=== PATIENT | female | born 1950 | race Caucasian/White ===

== ENCOUNTER → 2022-12-31 10:48 | Outpatient (BNVA) | payer MEDICARE, SELFPAY | PROVIDERS: Visit Provider Nurse Practitioner Family | DX: E55.9 Vitamin D deficiency, unspecified (principal); E78.2 Mixed hyperlipidemia; I10 Essential (primary) hypertension; K21.9 Gastro-esophageal reflux disease without esophagitis; R73.09 Other abnormal glucose; M25.562 Pain in left knee; M25.462 Effusion, left knee | CPT/HCPCS: 73562; 80053; 80061; 82306; 83036; 84443; 85025 ==

== ENCOUNTER → 2023-01-23 11:04 | Outpatient (BNVA) | payer MEDICARE, SELFPAY | PROVIDERS: Visit Provider Nurse Practitioner Family | DX: R71.8 Other abnormality of red blood cells (principal) | CPT/HCPCS: 82607; 82746 ==

== ENCOUNTER → 2023-04-17 11:59 | Outpatient (BNVA) | payer MEDICARE, SELFPAY | PROVIDERS: PCP Nurse Practitioner Family; Visit Provider Nurse Practitioner Family | DX: E78.2 Mixed hyperlipidemia (principal); E55.9 Vitamin D deficiency, unspecified; F41.9 Anxiety disorder, unspecified; F32.9 Major depressive disorder, single episode, unspecified; I10 Essential (primary) hypertension; R71.8 Other abnormality of red blood cells; L98.9 Disorder of the skin and subcutaneous tissue, unspecified | CPT/HCPCS: 80053; 82306; 82607; 84443; 85025 ==

== ENCOUNTER → 2023-07-03 11:25 | Outpatient (BNVA) | payer MEDICARE, MEDICAID, SELFPAY | PROVIDERS: PCP Nurse Practitioner Family; Visit Provider Nurse Practitioner Family | DX: E78.2 Mixed hyperlipidemia (principal); E55.9 Vitamin D deficiency, unspecified; I10 Essential (primary) hypertension | CPT/HCPCS: 80053; 80061; 82306; 84443; 85025 ==

== ENCOUNTER → 2023-09-10 09:24 | Outpatient (BNVA) | payer MEDICARE, MEDICAID, SELFPAY | PROVIDERS: PCP Nurse Practitioner Family; Visit Provider Nurse Practitioner Family | DX: K59.00 Constipation, unspecified (principal) | CPT/HCPCS: 74018 ==

== ENCOUNTER → 2023-10-28 14:05 | Outpatient (BNVA) | payer MEDICARE, MEDICAID, SELFPAY | PROVIDERS: PCP Nurse Practitioner Family; Visit Provider Nurse Practitioner Family | DX: E55.9 Vitamin D deficiency, unspecified (principal); E78.2 Mixed hyperlipidemia; I10 Essential (primary) hypertension; K21.9 Gastro-esophageal reflux disease without esophagitis | CPT/HCPCS: 80053; 80061; 84443; 85025 ==

== ENCOUNTER 2024-01-13 06:00 | Outpatient (CLI) | payer MEDICARE, MEDICAID, SELFPAY | END 2024-01-13 06:01 | disposition home or self-care (01) | LOC: RAD 01-14 06:09 | PROVIDERS: PCP Nurse Practitioner Family; Visit Provider Nurse Practitioner Family | DX: E55.9 Vitamin D deficiency, unspecified (principal); I10 Essential (primary) hypertension | CPT/HCPCS: 80053; 80061; 82306; 84443; 85025 ==

== ENCOUNTER 2024-01-19 15:17 | Outpatient (CLI) | payer MEDICARE, MEDICAID, SELFPAY ==
--- NOTE | 2024-01-19 15:00 | MM_ITS ---
WS: [id number] BILATERAL 3D TOMOSYNTHESIS DIGITAL SCREENING MAMMOGRAPHY WITH CAD CLINICAL INFORMATION: SCREENING HISTORY: Screening mammogram. No current complaints. COMPARISON: 2010 TECHNIQUE: Bilateral CC and MLO views. FINDINGS: Scattered fibroglandular densities bilaterally. No suspicious focal mass, asymmetry, calcifications, or architectural distortion. No evidence of malignancy. Vascular calcifications. MM/[place] [id number] IMPRESSION: DENSITY: There are scattered areas of fibroglandular density. BI-RADS: 2 - Benign. FOLLOW UP: 1 Year Follow-up Recommend return to annual screening mammography.
== END 2024-01-19 15:18 | disposition home or self-care (01) ==
LOC: MOBLMAM 15:18
PROVIDERS: PCP Nurse Practitioner Family; Visit Provider Nurse Practitioner Family
DX: Z12.31 Encounter for screening mammogram for malignant neoplasm of breast (principal); R92.323 Mammographic fibroglandular density, bilateral breasts; R92.1 Mammographic calcification found on diagnostic imaging of breast
CPT/HCPCS: 77063; 77067

== ENCOUNTER → 2024-04-27 09:23 | Outpatient (BNVA) | payer MEDICARE, MEDICAID, SELFPAY | PROVIDERS: PCP Clinical Nurse Specialist Adult Health; Visit Provider Clinical Nurse Specialist Adult Health | DX: E78.2 Mixed hyperlipidemia (principal); E55.9 Vitamin D deficiency, unspecified; I10 Essential (primary) hypertension; R10.12 Left upper quadrant pain | CPT/HCPCS: 80053; 80061; 82306; 85025 ==

== ENCOUNTER → 2024-12-12 14:35 | Outpatient (BNVA) | payer MEDICARE, MEDICAID, SELFPAY | PROVIDERS: PCP Clinical Nurse Specialist Adult Health; Visit Provider Clinical Nurse Specialist Adult Health | DX: K59.00 Constipation, unspecified (principal); I10 Essential (primary) hypertension; E55.9 Vitamin D deficiency, unspecified; E78.2 Mixed hyperlipidemia; F41.9 Anxiety disorder, unspecified; F32.9 Major depressive disorder, single episode, unspecified; K21.9 Gastro-esophageal reflux disease without esophagitis; M81.0 Age-related osteoporosis without current pathological fracture | CPT/HCPCS: 74018; 80053; 82306; 85025 ==

== ENCOUNTER 2025-01-16 16:29 | Emergency (ER) | payer MEDICARE, MEDICAID, SELFPAY ==
--- OUTSIDE RECORDS SUMMARY | 2025-01-16 16:35 | XMS_ITS | Clinical Summary ---
Author Organization [facility] [place] Address [address] [place] [address] Care Team Providers Care Signals Intelligence Superintendent Name Role Phone Lincoln Vargas Primary Care Provider [phone] Allergies No known active allergies Medications NORVASC PO Take by mouth. Active ACTONEL PO Take by mouth. Active BUSPAR PO Take by mouth. Active CALCIUM + D PO Take by mouth. Active ASPIRIN 81 mg Oral Tab Take 81 mg by mouth daily. Active triamcinolone acetonide (KENALOG) 0.1 % Topical Oint Apply to affected area 2 times daily. 80 Gram 2 9 Active METOPROLOL TARTRATE ORAL Take by mouth. Active LISINOPRIL ORAL Take by mouth. Active FENOFIBRATE NANOCRYSTALLIZED (TRICOR ORAL) Take by mouth. Active CITALOPRAM HYDROBROMIDE (CELEXA ORAL) Take by mouth. Active TOPIRAMATE (TOPAMAX ORAL) Take by mouth. Active RANITIDINE HCL ORAL Take by mouth. 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 Gender Identity Not on file Sexual Orientation Not on file Occupation Industry Job Start Date Job End Date Not on file Not on file Not on file Not on file Not on file Not on file Not on file Not on file Last Filed Vital Signs Vital Sign Reading Time Taken Comments Blood Pressure 120/65 02/14/2014 2:00 AM CDT Pulse 76 02/14/2014 2:00 AM CDT Temperature 36.9 C (98.4 F) 02/14/2014 2:00 AM CDT Respiratory Rate 19 02/14/2014 2:00 AM CDT Oxygen Saturation 96% 02/14/2014 2:00 AM CDT Inhaled Oxygen Concentration - - Weight 84.9 kg (187 lb 1 oz) 02/14/2014 12:18 AM CDT Height 162.6 cm (5' 4 ) 02/14/2014 12:18 AM CDT Body Mass Index 32.11 02/14/2014 12:18 AM CDT Plan of Treatment Health Maintenance Due Date Last Done Comments DTAP/TDAP/TD VACCINES (1 - Tdap) 07/31/1970 BREAST CANCER SCREENING 1991 COLORECTAL SCREENING 07/31/1996 Colorectal Cancer Screening 07/31/1996 FIT-DNA Q 3 years 07/31/1996 FIT/FOBT Q 1 year 07/31/1996 Flex Sig/CT Colonography Q 5 years 07/31/1996 PNEUMOCOCCAL VACCINE 50+ YEARS (1 of 1 - PCV) 08/01/19 02 ZOSTER VACCINE (1 of 2) 07/31/2001 OSTEOPOROSIS SCREENING 07/31/2016 INFLUENZA VACCINE (#1) 2024 RSV VACCINE (60+ or ) (1 - 1-dose 75+ series) 07/31/2026 Insurance MEDICAID [place] Care Teams Signals Intelligence Superintendent Relationship Specialty Start Date End Date Lincoln Vargas DO [address] [place] [address] PCP - General Family Practice 01/19/13
[2025-01-16 17:01] VITALS: BP 164/100; PULSE 102; TEMP 36.7; O2SAT 98
--- NOTE | 2025-01-16 17:13 | XRR_ITS ---
PROCEDURE INFORMATION: Exam: XR Chest Exam date and time: 01/16/2025 5:16 PM Age: 74 years old Clinical indication: Shortness of breath; Additional info: Short of breath, abnormal breath sounds TECHNIQUE: Imaging protocol: Radiologic exam of the chest. Views: 1 view. Total images: 421 COMPARISON: 1. CR XR abdomen 1V* [id number] 12/12/2024 2:34 PM 2. CR XR abdomen 1V* [id number] 09/10/2023 9:23 AM FINDINGS: Lungs: Unremarkable. No consolidation. Lungs are well-aerated without focal pathologic pulmonary parenchymal process. Pleural spaces: No significant pleural effusion. No pneumothorax. Heart/Mediastinum: The heart is not enlarged. Vasculature: Aortic wall demonstrates moderate atherosclerotic calcification. Bones/joints: Severe chronic generalized degenerative changes of the vertebral column characterized by multilevel osteophyte formation, degenerative disc height loss, vacuum disc phenomenon, and degenerative facet arthrosis commensurate with patient's age. S shaped scoliosis of the thoracolumbar vertebral column. Shoulder glenohumeral osteoarthritis. Acromioclavicular joint mild chronic degenerative arthrosis. No acute osseous abnormality. Bones are qualitatively demineralized (osteopenic) limiting evaluation for nondisplaced fractures. XR/XR chest 1V portable [id number] IMPRESSION: Generalized advanced skeletal chronic degenerative and other nonacute findings as described above.
--- NOTE | 2025-01-16 17:14 | W.ED.URI ---
HPI - URI/Sore Throat General: Chief Complaint: Upper Respiratory Infection Stated Complaint: throat conjestion Time Seen by Provider: 01/16/25 16:43 History of Present Illness: Patient is a 74-year-old female with history of HLD, HTN, presents to the emergency room with hoarseness, sore throat, shortness of breath x 3 days. Roommate exposure: COVID. Shortness of breath is worse with exertion. Nonproductive cough. No fevers. No dysphagia. Endorses weakness. Oxygen saturation is 98% on room air in triage. No chest pain. Associated symptoms: Reports chills and nasal congestion; Deny abdominal pain, chest pain, fever(s), headache(s), nausea or vomiting Related Data Previous Rx's ?Medication ?Instructions ?Recorded atorvastatin 40 mg tablet 40 mg PO DAILY #30 tabs 05/09/24 cholecalciferol (vitamin D3) 1,250 50,000 unit PO .weekly #4 caps 05/09/24 mcg (50,000 unit) capsule omeprazole 40 mg capsule,delayed 40 mg PO DAILY #30 caps 05/09/24 release polyethylene glycol 3350 17 17 g PO DAILY #510 grams 05/09/24 gram/dose oral powder (Miralax) losartan 50 mg tablet 100 mg (2 x 50 mg) PO DAILY #60 12/14/24 tabs doxycycline hyclate 100 mg capsule 100 mg PO BID 10 days #20 caps 01/16/25 methylprednisolone 4 mg tablets in See Rx Instructions PO .COMPLEX 01/16/25 a dose pack (Medrol (David)) #21 ea Allergies Allergy/AdvReac Type Severity Reaction Status Date / Time No Known Allergies Allergy Verified 01/16/25 17:06 Review of Systems General: Reports: 10 or more systems reviewed and unremarkable except in HPI and below Const: Reports: chills and malaise; Denies: fever(s) Eyes: Denies: change in vision or blurry vision ENMT: Reports: throat pain, hoarseness (however states has not lost voice) and nasal congestion; Denies: odynophagia, mouth pain or dry mouth Card: Denies: chest pain or palpitations Resp: Reports: dyspnea GI: Denies: abdominal pain, nausea or vomiting : Denies: flank pain or difficulty voiding Musc: Denies: neck pain, back pain or extremity pain Skin/Breast: Denies: rash or pruritus Neuro: Denies: headache(s) or numbness in extremities Psych: Denies: anxiety or depression Endo: Denies: polyuria or polydipsia Stanley/Lymph: Denies: easy bruising or easy bleeding All/Imm: Denies: urticaria PFSH ED PFSH: Medical History (Updated 01/16/25 @ 18:14 by CHETAN David) Slow transit constipation with bloating Scoliosis Mixed hyperlipidemia Anxiety and depression Chronic hypertension GERD (gastroesophageal reflux disease) Osteoporosis Vitamin D deficiency Surgical History History of hysterectomy History of rhinoplasty Family History Other Diabetes Hypertension Denies family history of Clotting disorder Anesthesia complication Bleeding disorder Social History Smoking and tobacco/nicotine status: never used tobacco/nicotine Second hand smoke exposure: No Alcohol intake: never Substance/Drug Use: never Caregiver/support person: No Lives independently: Yes Household members: spouse Marital status: / service: No Current occupational status: unemployed Current occupational exposures/hazards: No Do you think of yourself as: Straight/Heterosexual Current gender identity: Female Physical Exam Const: COMMON NORMALS: no acute distress, average body habitus, patient oriented x3, no limitations, healthy appearing, alert and well nourished HENMT: COMMON NORMALS: normocephalic, atraumatic, hearing grossly normal bilaterally, TM's normal bilaterally, Normal external nose present and oropharynx normal HEAD & SCALP: normocephalic and atraumatic FACE & SINUS: normal facial exam and sinuses nontender NOSE: Normal external nose present and Normal nares present TYMPANIC MEMBRANE: TM's normal bilaterally MOUTH: Normal oral and palatal mucosa present, lip normal and tongue normal Neck/C-Spine: COMMON NORMALS: full ROM, no lymphadenopathy, supple and no meningeal signs GENERAL: Yes normal visual inspection and Yes trachea midline CERVICAL SPINE: Yes cervical ROM normal Lymph: LYMPHATIC: no lymphadenopathy noted Chest: COMMONS NORMALS: normal inspection of the chest Resp: AUSCULTATION: crackles Laterality: bilateral (distal) and posterior and wheezes (mild end-expiratory) Cardio: COMMON NORMALS: regular rate and regular rhythm RATE: regular rate RHYTHM: regular rhythm GI: COMMON NORMALS: Normal to inspection, nondistended, normoactive bowel sounds present, Soft to palpation, non-tender and No hepatosplenomegaly present PALPATION: Yes Soft to palpation and Yes No hepatosplenomegaly present : COMMON NORMALS: Yes no CVA tenderness BLADDER/KIDNEY EXAM: Yes no CVA tenderness Back/Pelvis: COMMON NORMALS: no CVA tenderness Extremity: COMMON NORMALS: normal to inspection, full ROM and capillary refill normal Neuro: COMMON NORMALS: patient oriented x3 SENSORIUM/ORIENTATION: Yes alert MENINGEAL SIGNS: Yes no meningeal signs Psych: COMMON NORMALS: mental status grossly normal, Normal thought process present and cooperative THOUGHT PROCESS: Normal thought process present Skin: COMMON NORMALS: no rashes or lesions noted, no wounds and turgor normal GENERAL SKIN EXAM: no rashes or lesions noted and turgor normal Course Vital Signs: Vital signs: Vital Signs Temperature 98.1 F 01/16/25 17:01 Pulse Rate 77 01/16/25 18:24 Respiratory Rate 18 01/16/25 18:24 Blood Pressure 164/100 01/16/25 17:01 Pulse Oximetry 97 01/16/25 18:24 Oxygen Delivery Me thod Room Air 01/16/25 18:24 MDM - URI/Sore Throat Medical Decision Making Patient is a 74-year-old female exposed to COVID. She has abnormal breath sounds with crackles posterior distal bases. Will add a chest x-ray as well as COVID swab. COVID is positive which I suspected. Patient does not have notable infiltrate acutely on chest x-ray, however on physical examination she does like she has pneumonia. I do suspect viral, however given her history of COPD, bronchial breath sounds, will protect for infectious nature with doxycycline. Medrol Dosepak has been sent for her reactive airway. Discussed with patient is important to have this delivered from the pharmacy or dropped off by someone that is not ill, and to stay isolated for 5 full days given the issue of communicable illness. Patient is not happy but states understanding. Medical Records I reviewed the patient's medical records. Lab Data I reviewed the patient's lab results. Radiology Impressions Chest X-Ray 01/16/25 17:13 IMPRESSION: Generalized advanced skeletal chronic degenerative and other nonacute findings as described above. Laboratory Results Influenza A (PCR) Negative (Negative) 01/16/25 17:08 Influenza Type B (PCR) Negative (Negative) 01/16/25 17:08 RSV (PCR) Negative (Negative) 01/16/25 17:08 SARS-CoV-2 (PCR) Positive (Negative) A 01/16/25 17:08 XR interpretation done by ED provider, pending radiology final review Discharge Plan Discharge Patient Disposition: Home Clinical Impression: COVID-19 Pneumonia Qualifiers: Pneumonia type: due to unspecified organism Laterality: bilateral Lung location: lower lobe of lung Qualified Code(s): J18.9 - Pneumonia, unspecified organism RAD (reactive airway disease) with wheezing Qualifiers: Asthma severity: mild Asthma persistence: intermittent Asthma complication type: with acute exacerbation Qualified Code(s): J45.21 - Mild intermittent asthma with (acute) exacerbation Condition: Stable Prescriptions: New doxycycline hyclate 100 mg capsule 100 mg PO BID 10 Days Qty: 20 0RF methylprednisolone [Medrol (David)] 4 mg tablets,dose pack See Rx Instructions .ROUTE .COMPLEX Qty: 21 0RF Rx Instructions: for 6 days No Action atorvastatin 40 mg tablet 40 mg PO DAILY Qty: 30 11RF cholecalciferol (vitamin D3) 1,250 mcg (50,000 unit) capsule 50,000 unit PO .weekly Qty: 4 2RF omeprazole 40 mg capsule,delayed release(DR/EC) 40 mg PO DAILY Qty: 30 11RF polyethylene glycol 3350 [Miralax] 17 gram/dose powder 17 g PO DAILY Qty: 510 11RF losartan 50 mg tablet 100 mg PO DAILY Qty: 60 11RF Discharge Orders: Discharge ED (Routine); Ordered 01/16/25 Ordered By: Elidia Boles Referrals: Navneet Gutierrez NP [Primary Care Provider, Family Practice] - 7-10 days Discharge Diet: Usual diet Discharge Activity: Resume usual activity Patient Instructions: Community Acquired Pneumonia (ED), COVID-19 (Coronavirus Disease 2019) (ED), Patient Portal & Claudia Instructions Activity Restrictions/Additional Instructions: Do not leave your home for 5 days. This is still a communicable disease that affects young and elderly, immunocompromised, in the community with increased mortality. Laying in a prone position, or on your abdomen for periods during the day helps with your breathing. Take your inhaler as instructed. Return to ED only if you have increasing shortness of breath. Do not follow-up with your primary care physician until 5 days, however follow-up in 5-7 days is important to reassess your lungs. Your medication has been sent to the pharmacy. Your next dose is due early in the morning. Please obtain your medication in the morning and start promptly. Take a probiotic or active culture yogurt to avoid infectious diarrhea Stand Alone Forms: Work/School Release Print Language: Bulgarian Coding Level of Care Code ED Roll Tension Tester for Jduy Keenan
[2025-01-16 18:08] LABS: Respiratory Syncytial Virus Ce NEGATIVE (Negative)
[2025-01-16] MEDS: albuterol 8 gm MDI 2 PUFF INHALATION (18:22)
[2025-01-16 18:24] VITALS: PULSE 77; RESP 18; O2SAT 97
[2025-01-16 18:34] LABS: SARS-CoV-2 PCR Positive (Negative)
== END 2025-01-16 18:58 | disposition home or self-care (01) ==
PROVIDERS: Emergency Medicine; Emergency Provider Physician Assistant; PCP Clinical Nurse Specialist Adult Health
DX: U07.1 COVID-19 (principal); J18.9 Pneumonia, unspecified organism; J45.21 Mild intermittent asthma with (acute) exacerbation; Z11.52 Encounter for screening for COVID-19; E78.2 Mixed hyperlipidemia; I10 Essential (primary) hypertension
CPT/HCPCS: 71045; 87637; 94640; 96372; 99284; J1100; J3535; J9999

== ENCOUNTER 2025-01-25 12:49 | Outpatient (CLI) | payer MEDICARE, MEDICAID, SELFPAY ==
--- NOTE | 2025-01-25 12:40 | MM_ITS ---
WS: [id number] BILATERAL 3D TOMOSYNTHESIS DIGITAL SCREENING MAMMOGRAPHY WITH CAD CLINICAL INFORMATION: SCREENING HISTORY: Screening mammogram. No current complaints. COMPARISON: 2023 TECHNIQUE: Bilateral CC and MLO views. FINDINGS: Scattered fibroglandular densities bilaterally. No suspicious focal mass, asymmetry, calcifications, or architectural distortion. No evidence of malignancy. Vascular calcification. MM/MM scr tomosynthesis [id number] IMPRESSION: DENSITY: There are scattered areas of fibroglandular density. BI-RADS: 2 - Benign. FOLLOW UP: 1 Year Follow-up Recommend return to annual screening mammography.
== END 2025-01-25 12:50 | disposition home or self-care (01) ==
LOC: MOBLMAM 12:51
PROVIDERS: PCP Clinical Nurse Specialist Adult Health; Visit Provider Clinical Nurse Specialist Adult Health
DX: Z12.31 Encounter for screening mammogram for malignant neoplasm of breast (principal)
CPT/HCPCS: 77063; 77067